=== PATIENT | female | born 1960 | race Caucasian/White ===

== ENCOUNTER 2017-12-14 10:02 | Observation (INO) | payer BC ==
[~2017-12-14] VITALS: Ht 160 cm; Wt 83.0 kg
[2017-12-14] MEDS ORDERED: NS(*) 0.9% 1000 ML BAG 1,000 ML IV ONE ×2 (10:08→12:05)
--- NOTE | 2017-12-14 10:08 | ER Report ---
History and Physical Time Seen By MD: 10:07 HPI/ROSSY CHIEF COMPLAINT: Somnolence, altered mental status HISTORY OF PRESENT ILLNESS: Patient is a 57-year-old female here status post knee replacement of the left knee on Tuesday. Patient was brought in by EMS due to a reported Phenergan overdose and altered mental status. Patient is currently taking Phenergan, Percocet for symptom management postop. Report was that the patient took more Phenergan and then usual likely causing her somnolence. She was noted to have desaturated on room air to 84% with no history of supplemental oxygen use. Patient is unsure how many pills she took and she denies suicidal or homicidal ideations or intentional self-harm. Lungs are clear to auscultation time of evaluation. Patient was tachycardic at time of evaluation in sinus rhythm, afebrile, hemodynamically stable. Denies chest pain. REVIEW OF SYSTEMS: Constitutional: No fever, no chills. Eyes: No discharge. ENT: No sore throat. Cardiovascular: No chest pain, no palpitations. Respiratory: No cough, no shortness of breath, Gastrointestinal: No abdominal pain, no vomiting. Genitourinary: No hematuria. Musculoskeletal: + left knee post op pain Skin: No rashes. Neurological: + confusion, somnolence Allergies: Coded Allergies: codeine (Verified Adverse Reaction, Intermediate, NAUSEA/VOMITING, 12/14/17) Home Meds Reported Medications Aspirin (ASPIRIN) 325 Mg Tablet, 325 MG PO BID, TAB 12/14/17 Docusate Sodium (COLACE) 100 Mg Capsule, 100 MG PO PRN, CAPSULE 12/14/17 Oxycodone Hcl/Acetaminophen (PERCOCET 5-325 MG TABLET) 1 Each Tablet, 1 EACH PO Q4-6H PRN for PAIN, TAB 12/14/17 Promethazine Hcl (PROMETHAZINE HCL) 25 Mg Tablet, 25 MG PO Q8H PRN for NAUSEA, TAB 12/14/17 Constitutional Vital Sign - Last 24 Hours 12/14/17 12/14/17 12/14/17 12/14/17 10:02 10:03 10:06 10:10 Temp 97.8 Pulse 103 104 Resp 8 B/P (MAP) 115/80 (92) 115/80 Pulse Ox 82 88 O2 Delivery Room Air Room Air O2 Flow Rate 4.0 12/14/17 12/14/17 12/14/17 12/14/17 10:32 10:48 11:00 11:02 Pulse 105 102 B/P (MAP) 111/85 (94) 115/84 (94) Pulse Ox 97 90 O2 Delivery Nasal Cannula Nasal Cannula O2 Flow Rate 4 4 12/14/17 12/14/17 12/14/17 12/14/17 11:15 11:20 11:30 11:35 Pulse 99 100 B/P (MAP) 113/81 (92) 100/79 (86) Pulse Ox 94 91 O2 Delivery Nasal Cannula Nasal Cannula O2 Flow Rate 4 4 12/14/17 12/14/17 12/14/17 12/14/17 11:45 11:50 12:00 12:05 Pulse 100 101 B/P (MAP) 99/67 (78) 108/89 (95) Pulse Ox 92 89 O2 Delivery Nasal Cannula Nasal Cannula O2 Flow Rate 4 4 12/14/17 12/14/17 12/14/17 12/14/17 12:30 12:35 12:40 13:00 Pulse 100 B/P (MAP) 105/79 (88) 100/81 (87) 122/88 (99) Pulse Ox 91 O2 Delivery Nasal Cannula O2 Flow Rate 4 12/14/17 12/14/17 12/14/17 12/14/17 13:05 13:20 13:35 13:40 Pulse 95 97 B/P (MAP) 115/81 (92) 125/87 (100) Pulse Ox 97 95 O2 Delivery Nasal Cannula Nasal Cannula O2 Flow Rate 4 12/14/17 14:00 B/P (MAP) 105/77 (86) Physical Exam General Appearance: The patient is alert, has no immediate need for airway protection and no signs of toxicity. + somnolent appearing Eyes: Pupils equal and round no pallor or injection. ENT, Mouth: Mucous membranes are moist. Respiratory: There are no retractions, lungs are clear to auscultation. Cardiovascular: + tachy and regular Gastrointestinal: Abdomen is soft and non tender, no masses, bowel sounds normal. Neurological: Somnolent, moving all extremities Skin: Warm and dry, no rashes. Musculoskeletal: Neck is supple non tender. + left knee in post surgical bandage without drainage DIFFERENTIAL DIAGNOSIS: After history and physical exam differential diagnosis was considered for medication overdose, medication interaction, infection, dehydration Medical Decision Making Data Points Result Diagram: 12/14/17 1000 12/14/17 1000 Laboratory Hematology Test 12/14/17 10:00 12/14/17 11:15 12/14/17 11:28 Red Blood Count 3.41 M/uL (4.17-5.56) Mean Corpuscular Volume 97.2 fL (80.0-96.0) Mean Corpuscular Hemoglobin 31.6 pg (26.0-33.0) Mean Corpuscular Hemoglobin Concent 32.5 g/dL (32.0-36.0) Red Cell Distribution Width 13.9 % (11.5-14.5) Mean Platelet Volume 8.2 fL (7.2-11.1) Neutrophils (%) (Auto) 76.5 % (39.4-72.5) Lymphocytes (%) (Auto) 9.7 % (17.6-49.6) Monocytes (%) (Auto) 13.7 % (4.1-12.4) Eosinophils (%) (Auto) 0.0 % (0.4-6.7) Basophils (%) (Auto) 0.1 % (0.3-1.4) Nucleated RBC Relative Count (auto) 0.0 /100WBC Neutrophils # (Auto) 16.3 K/uL (2.0-7.4) Lymphocytes # (Auto) 2.1 K/uL (1.3-3.6) Monocytes # (Auto) 2.9 K/uL (0.3-1.0) Eosinophils # (Auto) 0.0 K/uL (0.0-0.5) Basophils # (Auto) 0.0 K/uL (0.0-0.1) Nucleated RBC Absolute Count (auto) 0.01 K/uL Peripheral Blood Smear Yes Y/N Sodium Level 141 mmol/L (137-145) Potassium Level 4.5 mmol/L (3.5-5.0) Chloride Level 100 mmol/L (98-107) Carbon Dioxide Level 29 mmol/L (22-31) Blood Urea Nitrogen 19 mg/dl (7-18) Creatinine 0.80 mg/dl (0.52-1.04) Glomerular Filtration Rate Calc > 60.0 Random Glucose 135 mg/dl (75-110) Calcium Level 8.9 mg/dl (8.4-10.2) Total Bilirubin 0.3 mg/dl (0.2-1.3) Aspartate Amino Transf (AST/SGOT) 123 U/L (0-35) Alanine Aminotransferase (ALT/SGPT) 117 U/L (0-56) Alkaline Phosphatase 51 U/L (0-126) Total Protein 7.0 g/dl (6.3-8.2) Albumin 3.9 g/dl (3.5-5.0) Lipase 129 U/L (23-300) Urine Color Yellow Urine Clarity Slightly-cloudy Urine pH 5.0 pH (4.8-9.5) Urine Specific [place] 1.023 Urine Protein 30 mg/dL (NEGATIVE) Urine Glucose (UA) Negative mg/dL (NEGATIVE) Urine Ketones Negative mg/dL (NEGATIVE) Urine Blood Negative (NEGATIVE) Urine Nitrite Negative (NEGATIVE) Urine Bilirubin Negative (NEGATIVE) Urine Urobilinogen 2.0 mg/dL (0.2-1.9) Urine Leukocyte Esterase Negative (NEGATIVE) Urine RBC 2 /HPF (0-2/HPF) Urine WBC 12 /HPF (0-5/HPF) Urine Squamous Epithelial Cells Many /LPF (NONE-FEW) Urine Bacteria Negative /HPF (NONE-FEW) Urine Hyaline Casts Many /LPF (NONE-FEW) Urine Mucus Few /HPF (NONE-FEW) Lactate 3.5 mmol/L (0.7-2.1) Chemistry Test 12/14/17 10:00 12/14/17 11:15 12/14/17 11:28 White Blood Count 21.3 k/uL (4.5-11.0) Red Blood Count 3.41 M/uL (4.17-5.56) Hemoglobin 10.8 g/dL (12.0-16.0) Hematocrit 33.2 % (34.0-47.0) Mean Corpuscular Volume 97.2 fL (80.0-96.0) Mean Corpuscular Hemoglobin 31.6 pg (26.0-33.0) Mean Corpuscular Hemoglobin Concent 32.5 g/dL (32.0-36.0) Red Cell Distribution Width 13.9 % (11.5-14.5) Platelet Count 325 K/uL (150-450) Mean Platelet Volume 8.2 fL (7.2-11.1) Neutrophils (%) (Auto) 76.5 % (39.4-72.5) Lymphocytes (%) (Auto) 9.7 % (17.6-49.6) Monocytes (%) (Auto) 13.7 % (4.1-12.4) Eosinophils (%) (Auto) 0.0 % (0.4-6.7) Basophils (%) (Auto) 0.1 % (0.3-1.4) Nucleated RBC Relative Count (auto) 0.0 /100WBC Neutrophils # (Auto) 16.3 K/uL (2.0-7.4) Lymphocytes # (Auto) 2.1 K/uL (1.3-3.6) Monocytes # (Auto) 2.9 K/uL (0.3-1.0) Eosinophils # (Auto) 0.0 K/uL (0.0-0.5) Basophils # (Auto) 0.0 K/uL (0.0-0.1) Nucleated RBC Absolute Count (auto) 0.01 K/uL Peripheral Blood Smear Yes Y/N Glomerular Filtration Rate Calc > 60.0 Calcium Level 8.9 mg/dl (8.4-10.2) Total Bilirubin 0.3 mg/dl (0.2-1.3) Aspartate Amino Transf (AST/SGOT) 123 U/L (0-35) Alanine Aminotransferase (ALT/SGPT) 117 U/L (0-56) Alkaline Phosphatase 51 U/L (0-126) Total Protein 7.0 g/dl (6.3-8.2) Albumin 3.9 g/dl (3.5-5.0) Lipase 129 U/L (23-300) Urine Color Yellow Urine Clarity Slightly-cloudy Urine pH 5.0 pH (4.8-9.5) Urine Specific [place] 1.023 Urine Protein 30 mg/dL (NEGATIVE) Urine Glucose (UA) Negative mg/dL (NEGATIVE) Urine Ketones Negative mg/dL (NEGATIVE) Urine Blood Negative (NEGATIVE) Urine Nitrite Negative (NEGATIVE) Urine Bilirubin Negative (NEGATIVE) Urine Urobilinogen 2.0 mg/dL (0.2-1.9) Urine Leukocyte Esterase Negative (NEGATIVE) Urine RBC 2 /HPF (0-2/HPF) Urine WBC 12 /HPF (0-5/HPF) Urine Squamous Epithelial Cells Many /LPF (NONE-FEW) Urine Bacteria Negative /HPF (NONE-FEW) Urine Hyaline Casts Many /LPF (NONE-FEW) Urine Mucus Few /HPF (NONE-FEW) Lactate 3.5 mmol/L (0.7-2.1) Urinalysis Test 12/14/17 11:15 Urine Color Yellow Urine Clarity Slightly-cloudy Urine pH 5.0 pH (4.8-9.5) Urine Specific [place] 1.023 Urine Protein 30 mg/dL (NEGATIVE) Urine Glucose (UA) Negative mg/dL (NEGATIVE) Urine Ketones Negative mg/dL (NEGATIVE) Urine Blood Negative (NEGATIVE) Urine Nitrite Negative (NEGATIVE) Urine Bilirubin Negative (NEGATIVE) Urine Urobilinogen 2.0 mg/dL (0.2-1.9) Urine Leukocyte Esterase Negative (NEGATIVE) Urine RBC 2 /HPF (0-2/HPF) Urine WBC 12 /HPF (0-5/HPF) Urine Squamous Epithelial Cells Many /LPF (NONE-FEW) Urine Bacteria Negative /HPF (NONE-FEW) Urine Hyaline Casts Many /LPF (NONE-FEW) Urine Mucus Few /HPF (NONE-FEW) EKG/Imaging EKG Interpretation 12 lead EKG: Sinus tachycardia, rate 104, QTC 444, no ischemic changes or arrhythmias present. Rhythm: Sinus tachycardia [place]: normal QRS: normal ST segments: normal Monitor Interpretation: Sinus Tachycardia Imaging Exam type: CHEST SINGLE AP History: US of breath, knee surgery on 12/12/2017 Comparison: None. Findings: The lungs are free of acute effusions, infiltrates or edema. There is no evidence of a pneumothorax or pneumomediastinum. Cardiac silhouette is normal in size. The trachea is midline IMPRESSION: 1. No acute cardiac pulmonary process seen ED Course/Re-evaluation ED Course Patient is a 57-year-old female here with somnolence, postop from a left knee total replacement on Tuesday reportedly had taken extra Phenergan this morning which may have interacted with the patient's oxycodone. I spoke with the patient's shortly after arrival and the patient's reports that she was taking more Phenergan and oxycodone been prescribed and that she is o piate tej. Patient reports that she does have a family history of factor V Leiden deficiency and that her sibling of a blood clot in the past. Usual and the patient he came more alert after some time and receiving Narcan, she was still noted to be about 92% on 4 L of oxygen. Patient was noted to have a white count of 21,000 and a lactate of 3.5 however the patient was noted to be afebrile. She was given Toradol for pain control and was given a 2nd liter of normal saline for hydration. Due to the patient's low oxygen saturations in spite of being alert, CT PE was completed to rule out pulmonary embolism in the setting of a family history of blood clot disorder and a recent surgery on M on. CT PE is negative for pulmonary embolisms. Patient was still noted to be about 90-92% on room air. Due to patient's current consolation symptoms, apparent lab findings, decision was made to admit the patient for repeat lab evaluation and oxygen titration. Patient was admitted for further inpatient care. I discussed the patient with Dr. Bowen who agreed to admission. Decision to Disposition Date: Dec 14, 2017 Decision to Disposition Time: 15:00 Depart Departure Latest Vital Signs Vital Signs Date Time Temp Pulse Resp B/P (MAP) Pulse Ox O2 Delivery O2 Flow Rate FiO2 12/14/17 14:00 105/77 (86) 12/14/17 13:35 97 95 Nasal Cannula 12/14/17 13:05 4 12/14/17 10:06 97.8 8 Impression: Primary Impression: Lactic acidosis Additional Impressions: Lethargy Hypoxia Condition: Improved Disposition: Admitted from ER Problem Qualifiers VIRAL GARZA DO Dec 14, 2017 10:07
[2017-12-14] MEDS ORDERED: ONDANSETRON 4 MG/2 ML VIAL IVP ONE (10:10)
[2017-12-14] MEDS ORDERED: NALOXONE HCL 0.4 MG/ML VIAL IVP ONE (10:10)
[2017-12-14] MEDS ORDERED: DOCU-416 PO (10:16)
[2017-12-14] MEDS ORDERED: OXYC-865 PO (10:16)
[2017-12-14] MEDS ORDERED: PROM-110 PO (10:16)
[2017-12-14 10:22] LABS: PLATELET COUNT, AUTOMATED 325 K/uL (150-450)
--- NOTE | 2017-12-14 10:25 | EKG ---
FACILITY: [facility] - [place] PATIENT NAME: LION KAMINSKI : [id number] MR: [id number] V: [id number] EXAM DATE: ORDERING PHYSICIAN: VIRAL GARZA TECHNOLOGIST: EMILY Test Reason : ALOC Blood Pressure : / mmHG Vent. Rate : 104 BPM Atrial Rate : 104 BPM P-R Int : 150 ms QRS Dur : 078 ms QT Int : 338 ms P-R-T Axes : 055 015 026 degrees QTc Int : 444 ms Sinus tachycardia Low voltage QRS Borderline ECG No previous ECGs available Confirmed by TORI ADORNO ([id number]) on 12/14/2017 12:46:33 PM Referred By: KAYLA Confirmed By:TORI ADORNO
[2017-12-14] MEDS ORDERED: KETOROLAC 30 MG/ML VIAL IVP ONE (10:40)
--- NOTE | 2017-12-14 11:11 | RADIOLOGY IMAGING REPORT ---
FACILITY: [facility] - [place] PATIENT NAME: Marisela Desai : 1960 MR: [id number] V: [id number] EXAM DATE: ORDERING PHYSICIAN: VIRAL GARZA TECHNOLOGIST: Location: [facility] - [place] Patient: Marisela Desai : 1960 Visit/Account:[id number] Date of Sevice: 12/14/2017 Exam type: CHEST SINGLE AP History: US of breath, knee surgery on 12/12/2017 Comparison: None. Findings: The lungs are free of acute effusions, infiltrates or edema. There is no evidence of a pneumothorax or pneumomediastinum. Cardiac silhouette is normal in size. The trachea is midline IMPRESSION: 1. No acute cardiac pulmonary process seen Report Dictated By: Keiry Saleh MD at 12/14/2017 11:07 AM Report E-Signed By: Keiry Saleh MD at 12/14/2017 11:08 AM WSN:[id number]
[2017-12-14] MEDS ORDERED: NS(*) 0.9% 50 ML BAG 50 ML ONE (12:19)
[2017-12-14] MEDS ORDERED: IOPAMIDOL 76% 75 ML INFUS BTL 75 ML ONE (12:20)
[2017-12-14] MEDS ORDERED: traMADol 50 MG TAB PO ONE (12:55)
--- NOTE | 2017-12-14 13:03 | RADIOLOGY IMAGING REPORT ---
FACILITY: [facility] - [place], [place] PATIENT NAME: Marisela Desai : 1960 MR: [id number] V: [id number] EXAM DATE: ORDERING PHYSICIAN: VIRAL GARZA TECHNOLOGIST: Location: [facility] [place] Patient: Marisela Desai : 1960 Visit/Account:[id number] Date of Sevice: 12/14/2017 EXAMINATION: CTA of the chest with IV contrast HISTORY: Shortness of breath. TECHNIQUE: Pulmonary embolus protocol - Thin-slice axial imaging of the chest was performed during maximal pulmonary arterial opacification with intravenous nonionic iodinated contrast. 3D coronal sla b MIPs and 2D reconstructions in the coronal and sagittal planes were performed to aid in pulmonary e mbolus detection. Collar Sewer images have been stored on PACS. One of the following dose optimization techniques was utilized in the performance of this exam: Autom ated exposure control; adjustment of the mA and/or kV according to the patient's size; or use of an i terative reconstruction technique. Specific details can be referenced in the facility's radiology C T exam operational policy. CONTRAST: 75 mL of IV Isovue-370 COMPARISON: Chest x-ray from same date. FINDINGS: CTA CHEST: Please note that this exam is optimized for assessment of the pulmonary arteries and is not intended as a diagnostic study of the thoracic aorta, coronary arteries or venous structures. Lower neck: Negative. Angiographic Findings: Pulmonary arteries: There are no filling defects in the main, right, left, lobar, segmental or visual ized sub-segmental branches of the pulmonary arterial system. No intraluminal webs or bronchial mesfin aterals. Other vasculature: Negative. Additional non-angiographic findings: Lungs / Pleura: Negative. Mediastinum / Natasha: Negative. Heart / Pericardium: Negative. Lymph nodes: Negative. Musculoskeletal / Body wall: Multilevel degenerative disc disease in the thoracic spine with convex rightward curvature. Upper abdomen: 2.2 x 1.8 cm left adrenal nodule measuring 28 Hounsfield units. IMPRESSION: 1. No evidence of acute or chronic pulmonary embolism. 2. Otherwise no acute cardiopulmonary process. 3. Nonspecific 2.2 x 1.8 cm left adrenal nodule. This is most likely benign in the absence of known p rimary malignancy. 4. Multilevel degenerative disc disease and thoracic spine with convex rightward curvature. Report Dictated By: Gigi Dennis MD at 12/14/2017 12:51 PM Report E-Signed By: Gigi Dennis MD at 12/14/2017 1:00 PM WSN:[id number]
[2017-12-14 14:44] VITALS: BP 111/78
[2017-12-14] MEDS ORDERED: ASPI-757 PO (14:49)
[2017-12-14] MEDS ORDERED: NS(*) 0.9% 1000 ML BAG 1,000 ML IV PRN (16:15)
--- NOTE | 2017-12-14 16:42 | History & Physical ---
History of Present Illness Chief Complaint Lethargy History of Present Illness This patient presented to the emergency room with reports of increased lethargy and sleepiness. She underwent knee replacement surgery in [place] last week. She accidentally took 2 pills of phergan instead of 1 and has had increased somnolence since. In the emergency room she was treated with Narcan, but continued to be lethargic and had decreased oxygen saturation. She denies any fever or increased pain in her knee. History Problems: (1) No pertinent past medical history Home Meds Reported Medications Aspirin (ASPIRIN) 325 Mg Tablet, 325 MG PO BID, TAB 12/14/17 Docusate Sodium (COLACE) 100 Mg Capsule, 100 MG PO PRN, CAPSULE 12/14/17 Oxycodone Hcl/Acetaminophen (PERCOCET 5-325 MG TABLET) 1 Each Tablet, 1 EACH PO Q4-6H PRN for PAIN, TAB 12/14/17 Promethazine Hcl (PROMETHAZINE HCL) 25 Mg Tablet, 25 MG PO Q8H PRN for NAUSEA, TAB 12/14/17 Allergies: Coded Allergies: codeine (Verified Adverse Reaction, Intermediate, NAUSEA/VOMITING, 12/14/17) Hx Smoking: No Hx Alcohol Use: No Hx Substance Use Disorder: No Review of Systems All Systems Reviewed/Normal: Yes, Except as Noted Cardiovascular: No Chest Pain Respiratory: No Shortness of Breath Exam Vital Signs Vital Signs Date Time Temp Pulse Resp B/P (MAP) Pulse Ox O2 Delivery O2 Flow Rate FiO2 12/14/17 15:19 89 Nasal Cannula 4.0 12/14/17 14:44 98.1 88 16 111/78 (89) Neuro: No Gross deficits Eyes: PERRLA Cardiovascular: Regular Rate and Rhythm Respiratory: Clear to Auscultation Extremities: No Edema Integumentary: No Cyanosis Medical Decision Making Data Points Result Diagram: 12/14/17 1000 12/14/17 1000 Assessment and Plan Problems: (1) Lethargy Assessment & Plan: She did present with increased lethargy after taking an extra tablet of 25mg Phenergan. We will observe her overnight to be sure she is not have any further effects. (2) Hypoxia Assessment & Plan: She has had hypoxia, which is likely secondary to apnea with her increased lethargy. A CT scan of the chest was negative for pulmonary embolism. She has been placed on supplemental oxygen. (3) Lactic acidosis Assessment & Plan: This is thought to be secondary to her hypoxia since she does not have any outward symptoms of infection. We will treat her with IV fluids and repeat a level later this evening. (4) Elevated liver enzymes Assessment & Plan: Also likely secondary to hypoxia. We will repeat her levels in the morning. Venous Thromboembolism Antithrombotics Is Pt On Any Antithrombotics?: No Exam Sepsis Risk: No Definite Risk TORI ADORNO DO Dec 14, 2017 16:42
[2017-12-14 19:16] VITALS: BP 106/75
[2017-12-14] MEDS: ASPIRIN 325 MG TAB PO SCH (20:36)
[2017-12-14] MEDS: oxyCODONE HCL 5 MG CAP PO PRN (22:18)
[2017-12-14 22:36] VITALS: BP 108/82
[2017-12-15] MEDS: oxyCODONE HCL 5 MG CAP PO PRN (05:15)
[2017-12-15] MEDS: IBUPROFEN 600 MG TAB PO PRN ×2 (05:38→18:15)
[2017-12-15 05:57] LABS: PLATELET COUNT, AUTOMATED 224 K/uL (150-450)
[2017-12-15] MEDS: traMADol 50 MG TAB PO PRN ×3 (09:35→22:23)
[2017-12-15] MEDS: ASPIRIN 325 MG TAB PO SCH (10:40)
[2017-12-15] MEDS: MAGNESIUM HYDROXIDE* 30ML UDCP PO SCH (10:40)
[2017-12-15 10:41] VITALS: BP 119/82
[2017-12-15] MEDS: FAMOTIDINE 20 MG TAB PO SCH ×2 (10:41→10:47)
[2017-12-15] MEDS ORDERED: ACETA/BUTAL/CAFF 325/50/40 TAB PO ONE ×2 (11:30→21:05)
--- NOTE | 2017-12-15 11:36 | Hospitalist Progress Note ---
Subjective Progress Notes Subjective She has complaints of headache this morning. She appears to still be drowsy this morning. Patient Complains of: Cardiovascular: No: Chest Pain Respiratory: No: Shortness of Breath Physical Exam Vital Signs Date Time Temp Pulse Resp B/P (MAP) Pulse Ox O2 Delivery O2 Flow Rate FiO2 12/15/17 10:41 98.6 87 8 119/82 (94) 96 Nasal Cannula 2.0 Intake and Output 12/15/17 07:00 Intake Total 2240 ml Output Total 20 ml Balance 2220 ml Intake Oral 240 ml IV Total 2000 ml Output Urine Total 20 ml # Voids 3 General Appearance: Alert, Awake, No Acute Distress, Afebrile Neuro: No Gross deficits Cardiovascular: Regular Rate and Rhythm Respiratory: No Respiratory Distress, Clear to Auscultation GI: Soft and Non-Tender, Other (no BM since surgery) Psych: Appropriate Mood & Affect, Other (drowsy in appearance, able to speak without difficulty) Result Diagram: 12/15/17 0547 12/15/17 0547 Monitor Interpretation: Sinus Tachycardia Assessment and Plan Problems: (1) Lethargy Assessment & Plan: She did present with increased lethargy after taking an extr a tablet of 25mg Phenergan. She appears to be drowsy still this morning, but overall appears to be related to narcotics causing lethargy. We will do Urine Drug Screen. We will switch her from Oxy IR to Tramadol to see if lethargy is lessened. (2) Hypoxia Assessment & Plan: She has had hypoxia, which is likely secondary to apnea with her increased lethargy. A CT scan of the chest was negative for pulmonary embolism. She has been placed on supplemental oxygen. (3) Lactic acidosis Assessment & Plan: This is thought to be secondary to her hypoxia since she does not have any outward symptoms of infection. She was treated with IV fluids and repeat a level shows improvement at 1.2. (4) Elevated liver enzymes Assessment & Plan: Also likely secondary to hypoxia. AST improving, continue to monitor. (5) Migraine Status: Chronic Assessment & Plan: She has chronic migraines, which she takes Fioricet. Exam Sepsis Risk: No Definite Risk MO OLMOS MANAGER SPRING Dec 15, 2017 11:36
[2017-12-15] MEDS ORDERED: [UNRECOGNIZED DRUG - CODE] PO (12:05)
[2017-12-15] MEDS ORDERED: BUTA1CAP6 PO (12:05)
--- NOTE | 2017-12-15 13:35 | RADIOLOGY IMAGING REPORT ---
FACILITY: [facility] - [place] PATIENT NAME: Marisela Desai : 1960 MR: [id number] V: [id number] EXAM DATE: ORDERING PHYSICIAN: MO OLMOS TECHNOLOGIST: Location: [facility] [place] Patient: Marisela Desai : 1960 Visit/Account:[id number] Date of Sevice: 12/15/2017 HEAD W/O CONTRAST Provided history: Lethargy, postop knee surgery, headache Additional pertinent history: none TECHNIQUE: Imaging was obtained from the skull base through the vertex without intravenous contrast. Source images were reformatted in the coronal sagittal planes. One of the following dose optimization techniques was utilized in the performance of this exam: Autom ated exposure control; adjustment of the mA and/or kV according to the patient's size; or use of an i terative reconstruction technique. Specific details can be referenced in the facility's radiology CT exam operational policy. Additional imaging: none COMPARISON STUDIES: No relevant priors FINDINGS: Brain volume: Normal Acute cortical ischemia: None Chronic cortical and ganglionic ischemia: none significant Hemorrhage: None Masses / edema: None White matter: Normal Vessels: Normal Extra-axial: None significant Calvarium / scalp: Negative Skull base: negative Visualized sinuses / orbits: negative IMPRESSION: Normal CT of the brain. No evidence of mass, acute ischemia or hemorrhage. Report Dictated By: Rupert Velasquez MD at 12/15/2017 1:31 PM Report E-Signed By: Rupert Velasquez MD at 12/15/2017 1:33 PM WSN:[email or web address]
[2017-12-15 14:46] VITALS: Ht 160 cm; Wt 83.0 kg
[2017-12-15 15:59] VITALS: BP 131/75
[2017-12-15] MEDS ORDERED: NS(*) 0.9% 500 ML BAG 500 ML IV ONE (18:35)
[2017-12-15 18:50] VITALS: BP 130/84
[2017-12-15 23:23] VITALS: BP 140/82
[2017-12-16] MEDS: IBUPROFEN 600 MG TAB PO PRN (02:20)
[2017-12-16] MEDS: traMADol 50 MG TAB PO PRN (05:23)
[2017-12-16 07:46] LABS: PLATELET COUNT, AUTOMATED 246 K/uL (150-450)
[2017-12-16] MEDS ORDERED: ACETA/BUTAL/CAFF 325/50/40 TAB PO PRN (08:35)
[2017-12-16] MEDS ORDERED: APAP/HYDROCODONE 325/5 TAB PO PRN (08:35)
[2017-12-16 08:40] VITALS: BP 131/85
[2017-12-16] MEDS: MAGNESIUM HYDROXIDE* 30ML UDCP PO SCH (09:40)
[2017-12-16] MEDS: ASPIRIN 325 MG TAB PO SCH (09:40)
[2017-12-16] MEDS: PANTOPRAZOLE SOD 40 MG TABEC PO SCH (09:40)
--- NOTE | 2017-12-16 10:56 | Hospitalist Progress Note ---
Subjective Progress Notes Subjective She has complaints of increased pain to the surgical knee this morning. She still has a headache, which did not go away yesterday despite treatment. Patient Complains of: Cardiovascular: No: Chest Pain Respiratory: No: Shortness of Breath Physical Exam Vital Signs Date Time Temp Pulse Resp B/P (MAP) Pulse Ox O2 Delivery O2 Flow Rate FiO2 12/16/17 08:40 98.4 76 16 131/85 (100) 89 Nasal Cannula 1.5 Intake and Output 12/16/17 06:59 Intake Total 770 ml Balance 770 ml Intake Oral 270 ml IV Total 500 ml # Voids 5 # Bowel Movements 1 General Appearance: Alert, Awake, No Acute Distress, Afebrile Neuro: No Gross deficits Cardiovascular: Regular Rate and Rhythm Respiratory: No Respiratory Distress, Clear to Auscultation GI: Soft and Non-Tender Psych: Alert & Oriented X3, Appropriate Mood & Affect Result Diagram: 12/16/17 0735 12/16/17 0735 Monitor Interpretation: Sinus Tachycardia Assessment and Plan Problems: (1) Lethargy Assessment & Plan: She did present with increased lethargy after taking an extra tablet of 25mg Phenergan. The drowsiness appears to be improving, but her headache has exacerbated recovery. (2) Anemia Status: Acute Assessment & Plan: Her hemoglobin has continued to decrease since admission. She has no reported bleeding from body. Continue to monitor. CBC to be done in the morning. She will be started on Protonix, secondary to high use NSAIDs. (3) Hypoxia Assessment & Plan: She has had hypoxia, which is likely secondary to apnea with her increased lethargy. A CT scan of the chest was negative for pulmonary embolism. She has been placed on supplemental oxygen. (4) Lactic acidosis Assessment & Plan: This is thought to be secondary to her hypoxia since she does not have any outward symptoms of infection. She was treated with IV fluids and repeat a level shows improvement at 1.2. (5) Elevated liver enzymes Assessment & Plan: Also likely secondary to hypoxia. Improving, continue to monitor. (6) Migraine Status: Chronic Assessment & Plan: She has chronic migraines, which she takes Fioricet. Head CT performed 12/15 shows no acute abnormality. She does continue to have headache today. Patient requests to use her own medication (Fioricet) to aid in headache relief. Exam Sepsis Risk: No Definite Risk Problem Qualifiers (1) Anemia: Anemia type: unspecified type Qualified Codes: D64.9 - Anemia, unspecified MO OLMOS FISH ROE TECHNICIAN Dec 16, 2017 10:56
[2017-12-16 16:13] VITALS: BP 139/72
[2017-12-16] MEDS ORDERED: INFLUENZA VIRUS VAC 0.5ML SYR IM ONLY ONE (16:15)
[2017-12-16 19:44] VITALS: BP 150/85
[2017-12-16] MEDS: IBUPROFEN PO PRN (20:00)
[2017-12-16] MEDS: FAMOTIDINE PO PRN (20:00)
[2017-12-17 02:10] VITALS: BP 158/94
[2017-12-17] MEDS: FAMOTIDINE PO PRN (04:01)
[2017-12-17] MEDS: IBUPROFEN PO PRN (04:01)
[2017-12-17 05:54] LABS: PLATELET COUNT, AUTOMATED 315 K/uL (150-450)
[2017-12-17 07:03] VITALS: BP 152/84
[2017-12-17] MEDS: ASPIRIN 325 MG TAB PO SCH (08:41)
[2017-12-17] MEDS: MAGNESIUM HYDROXIDE* 30ML UDCP PO SCH (09:00)
[2017-12-17] MEDS: PANTOPRAZOLE SOD 40 MG TABEC PO SCH (10:03)
[2017-12-17] MEDS ORDERED: PANT40TA65 PO (10:10)
[2017-12-17] MEDS ORDERED: ACET500T68 PO (10:13)
--- NOTE | 2017-12-17 10:32 | Hospitalist Depart ---
Discharge Summary Reason for Hosp/Final Diag: (1) Lethargy Hospital Course & Plan: Most likely related to narcotic pain medications (oxycodone) and antiemetic (Phenergan). The drowsiness/lethargy resolved after stopping the offending medications. She did have some pain control issues, but seemed to be doing fairly well with acetaminophen and ibuprofen. (2) Anemia Status: Acute Hospital Course & Plan: Most likely due to surgical blood loss with her recent knee replacement. Her hemoglobin/hematocrit did stabilize during her stay and started to improve. (3) Hypoxia Hospital Course & Plan: She did have hypoxia, which is likely secondary to respiratory depression with her medications. A CT scan of the chest was negative for pulmonary embolism. She did require supplemental oxygen initially, but was able to be weaned off. She was able to maintain adequate oxygen saturations. It does not appear she will need any ongoing oxygen at home. (4) Lactic acidosis Hospital Course & Plan: This is thought to be secondary to her respiratory depression/hypoxia. She did not have any outward symptoms of infection. She was treated with IV fluids and repeat a level showed resolution. (5) Elevated liver enzymes Hospital Course & Plan: Also, likely secondary to hypoxia. Her LFTs improved throughout her stay. (6) Migraine Status: Chronic Hospital Course & Plan: She has chronic migraines - uses Fioricet. Head CT performed 12/15 shows no acute abnormality. Departure Weight (Pounds): 183 Result Diagram: 12/17/17 0535 12/17/17 0535 Item Value Date Time White Blood Count 21.3 k/uL H 12/14/17 1000 Hemoglobin 10.8 g/dL L 12/14/17 1000 Hematocrit 33.2 % L 12/14/17 1000 Platelet Count 325 K/uL 12/14/17 1000 White Blood Count 10.1 k/uL 12/16/17 0735 Hemoglobin 9.0 g/dL *L 12/16/17 0735 Hematocrit 26.9 % *L 12/16/17 0735 Platelet Count 246 K/uL 12/16/17 0735 Platelet Count 224 K/uL 12/15/17 0547 Hematocrit 28.2 % L 12/15/17 0547 Hemoglobin 9.4 g/dL L 12/15/17 0547 White Blood Count 12.1 k/uL H 12/15/17 0547 Sodium Level 141 mmol/L 12/14/17 1000 Potassium Level 4.5 mmol/L 12/14/17 1000 Chloride Level 100 mmol/L 12/14/17 1000 Carbon Dioxide Level 29 mmol/L 12/14/17 1000 Blood Urea Nitrogen 19 mg/dl H 12/14/17 1000 Creatinine 0.80 mg/dl 12/14/17 1000 Glomerular Filtration Rate Calc > 60.0 12/14/17 1000 Random Glucose 135 mg/dl H 12/14/17 1000 Calcium Level 8.9 mg/dl 12/14/17 1000 Total Bilirubin 0.3 mg/dl 12/14/17 1000 Aspartate Amino Transf (AST/SGOT) 123 U/L H 12/14/17 1000 Alanine Aminotransferase (ALT/SGPT) 117 U/L H 12/14/17 1000 Alkaline Phosphatase 51 U/L 12/14/17 1000 Total Protein 7.0 g/dl 12/14/17 1000 Albumin 3.9 g/dl 12/14/17 1000 Lipase 129 U/L 12/14/17 1000 Lactate 3.5 mmol/L H 12/14/17 1128 Lactate 1.2 mmol/L 12/15/17 0547 C-Reactive Protein 3.2 mg/dl H 12/14/17 1856 Urine Opiates Screen Positive 12/15/17 0000 Urine Barbiturates Screen Negative 12/15/17 0000 Ur Tricyclic Antidepressants Screen Negative 12/15/17 0000 Urine Phencyclidine Screen Negative 12/15/17 0000 Urine Amphetamines Screen Negative 12/15/17 0000 Urine Benzodiazepines Screen Positive 12/15/17 0000 Urine Cocaine Screen Negative 12/15/17 0000 Urine Cannabinoids Screen Negative 12/15/17 0000 Urine Mucus Few /HPF 12/14/17 1115 Urine Hyaline Casts Many /LPF H 12/14/17 1115 Urine Bacteria Negative /HPF 12/14/17 1115 Urine Squamous Epithelial Cells Many /LPF H 12/14/17 1115 Urine WBC 12 /HPF 12/14/17 1115 Urine RBC 2 /HPF 12/14/17 1115 Urine Leukocyte Esterase Negative 12/14/17 1115 Urine Urobilinogen 2.0 mg/dL 12/14/17 1115 Urine Bilirubin Negative 12/14/17 1115 Urine Nitrite Negative 12/14/17 1115 Urine Blood Negative 12/14/17 1115 Urine Ketones Negative mg/dL 12/14/17 1115 Urine Glucose (UA) Negative mg/dL 12/14/17 1115 Urine Protein 30 mg/dL 12/14/17 1115 Urine Specific [place] 1.023 12/14/17 1115 Urine pH 5.0 pH 12/14/17 1115 Urine Clarity Slightly-cloudy 12/14/17 1115 Urine Color Yellow 12/14/17 1115 Imaging PATIENT NAME: Lion Kaminski : 1960 MR: [id number] V: [id number] EXAM DATE: ORDERING PHYSICIAN: MO OLMOS TECHNOLOGIST: Location: [facility] Patient: Lion Kaminski : 1960 Visit/Account:[id number] Date of Sevice: 12/15/2017 HEAD W/O CONTRAST Provided history: Lethargy, postop knee surgery, headache Additional pertinent history: none TECHNIQUE: Imaging was obtained from the skull base through the vertex without intravenous contrast. Source images were reformatted in the coronal sagittal planes. One of the following dose optimization techniques was utilized in the perf ormance of this exam: Automated exposure control; adjustment of the mA and/or kV according to the patient's size; or use of an iterative reconstruction technique. Specific details can be referenced in the facility's radiology CT exam operational policy. Additional imaging: none COMPARISON STUDIES: No relevant priors FINDINGS: Brain volume: Normal Acute cortical ischemia: None Chronic cortical and ganglionic ischemia: none significant Hemorrhage: None Masses / edema: None White matter: Normal Vessels: Normal Extra-axial: None significant Calvarium / scalp: Negative Skull base: negative Visualized sinuses / orbits: negative IMPRESSION: Normal CT of the brain. No evidence of mass, acute ischemia or hemorrhage. Report Dictated By: Rupert Velasquez MD at 12/15/2017 1:31 PM Report E-Signed By: Rupert Velasquez MD at 12/15/2017 1:33 PM WSN:[id number] PATIENT NAME: Lion Kaminski : 1960 MR: [id number] V: [id number] EXAM DATE: ORDERING PHYSICIAN: VIRAL GARZA TECHNOLOGIST: Location: [facility] Patient: Lion Kaminski : 1960 Visit/Account:[id number] Date of Sevice: 12/14/2017 EXAMINATION: CTA of the chest with IV contrast HISTORY: Shortness of breath. TECHNIQUE: Pulmonary embolus protocol - Thin-slice axial imaging of the chest was performed during maximal pulmonary arterial opacification with intravenous nonionic iodinated contrast. 3D coronal slab MIPs and 2D reconstructions in the coronal and sagittal planes were performed to aid in pulmonary embolus detection. Director Music images have been stored on PACS. One of the following dose optimization techniques was utilized in the performance of this exam: Automated exposure control; adjustment of the mA and/or kV according to the patient's size; or use of an iterative recons truction technique. Specific details can be referenced in the facility's radiology CT exam operational policy. CONTRAST: 75 mL of IV [id number] COMPARISON: Chest x-ray from same date. FINDINGS: CTA CHEST: Please note that this exam is optimized for assessment of the pulmonary arteries and is not intended as a diagnostic study of the thoracic aorta, coronary arteries or venous structures. Lower neck: Negative. Angiographic Findings: Pulmonary arteries: There are no filling defects in the main, right, left, lobar, segmental or visualized sub-segmental branches of the pulmonary arterial system. No intraluminal webs or bronchial collaterals. Other vasculature: Negative. Additional non-angiographic findings: Lungs / Pleura: Negative. Mediastinum / Natasha: Negative. Heart / Pericardium: Negative. Lymph nodes: Negative. Musculoskeletal / Body wall: Multilevel degenerative disc disease in the thoracic spine with convex rightward curvature. Upper abdomen: 2.2 x 1.8 cm left adrenal nodule measuring 28 Hounsfield units. IMPRESSION: 1. No evidence of acute or chronic pulmonary embolism. 2. Otherwise no acute cardiopulmonary process. 3. Nonspecific 2.2 x 1.8 cm left adrenal nodule. This is most likely benign in the absence of known primary malignancy. 4. Multilevel degenerative disc disease and thoracic spine with convex rightward curvature. Report Dictated By: Gigi Dennis MD at 12/14/2017 12:51 PM Report E-Signed By: Gigi Dennis MD at 12/14/2017 1:00 PM WSN:[id number] PATIENT NAME: Lion Kaminski : 1960 MR: [id number] V: [id number] EXAM DATE: ORDERING PHYSICIAN: VIRAL GARZA TECHNOLOGIST: Location: [facility] Patient: Lion Kaminski : 1960 Visit/Account:[id number] Date of Sevice: 12/14/2017 Exam type: CHEST SINGLE AP History: US of breath, knee surgery on 12/12/2017 Comparison: None. Findings: The lungs are free of acute effusions, infiltrates or edema. There is no evidence of a pneumothorax or pneumomediastinum. Cardiac silhouette is normal in size. The trachea is midline IMPRESSION: 1. No acute cardiac pulmonary process seen Report Dictated By: Keiry Saleh MD at 12/14/2017 11:07 AM Report E-Signed By: Keiry Saleh MD at 12/14/2017 11:08 AM WSN:[id number] PATIENT NAME: LION KAMINSKI : [id number] MR: [id number] V: [id number] EXAM DATE: ORDERING PHYSICIAN: VIRAL GARZA TECHNOLOGIST: Test Reason : ALOC Blood Pressure : / mmHG Vent. Rate : 104 BPM Atrial Rate : 104 BPM P-R Int : 150 ms QRS Dur : 078 ms QT Int : 338 ms P-R-T Axes : 055 015 026 degrees QTc Int : 444 ms Sinus tachycardia Low voltage QRS Borderline ECG No previous ECGs available Confirmed by TORI ADORNO ([id number]) on 12/14/2017 12:46:33 PM Referred By: KAYLA Confirmed By:TORI ADORNO Condition: Improved Discharge: Home PT/OT Follow Up For: PT For Surgical Rehab Follow-Up Labs: Other (CBC, CMP in 1-2 weeks.) Time Spent: > 30 min Discharge Instructions Home Meds Active Scripts Acetaminophen (TYLENOL EXTRA STRENGTH) 500 Mg Tablet, 500-1000 MG PO Q8H PRN for PAIN for 10 Days, #60 TAB Prov:ALPA SHANKS MD 12/17/17 Pantoprazole Sodium (PANTOPRAZOLE SODIUM) 40 Mg Tablet.dr, 40 MG PO QDAY for 30 Days, #30 TAB 0 Refills Prov:ALPA SHANKS MD 12/17/17 Reported Medications Ibuprofen/Famotidine (DUEXIS 800-26.6 MG TABLET) 1 Each Tablet, 1 TAB PO TID PRN for Arthritis 12/15/17 Butalb/Acetaminophen/Caffeine (FIORICET 50-300-40) 1 Each Capsule, 1-2 EACH PO Q4H PRN for HEADACHE, CAPSULE 12/15/17 Aspirin (ASPIRIN) 325 Mg Tablet, 325 MG PO BID, TAB 12/14/17 Docusate Sodium (COLACE) 100 Mg Capsule, 100 MG PO PRN, CAPSULE 12/14/17 Discontinued Reported Medications Oxycodone Hcl/Acetaminophen (PERCOCET 5-325 MG TABLET) 1 Each Tablet, 1 EACH PO Q4-6H PRN for PAIN, TAB 12/14/17 Promethazine Hcl (PROMETHAZINE HCL) 25 Mg Tablet, 25 MG PO Q8H PRN for NAUSEA, TAB 12/14/17 Diet: Regular Activity: As Tolerated (as outlined by physical therapy) Special Instructions: Follow up with Dr. Briggs as planned. Continue physical therapy. If need to take a Fioricet for migraine, must substitute it in for a dose of Tylenol (acetaminophen) - cannot take them together as it is too much acetaminophen. Copies to: NAT BRIGGS MD ; Venous Thromboembolism Antithrombotics Is Pt On Any Antithrombotics?: No Problem Qualifiers (1) Anemia: Anemia type: unspecified type Qualified Codes: D64.9 - Anemia, unspecified ALPA SHANKS MD Dec 17, 2017 10:32
== END 2017-12-17 10:14 | disposition home or self-care (01) ==
LOC: ER 10:08 → INTOOBSV 14:17 → MED 14:17
PROVIDERS: ADMIT Family Medicine; ATTEND Family Medicine
DX: T42.6X1A Poisoning by other antiepileptic and sedative-hypnotic drugs, accidental (unintentional), initial encounter (principal); E87.2 Acidosis; D64.9 Anemia, unspecified; R09.02 Hypoxemia; R53.83 Other fatigue; G43.909 Migraine, unspecified, not intractable, without status migrainosus
CPT/HCPCS: 36415; 70450; 71045; 71275; 80305; 81001; 83605; 83690; 85025; 86140; 93005; 97110; 97116; 97161; 97530; A4353; G0378; J1885; J2310; J2405; J7030; J7040; J7050; Q9967; 82040; 82247; 82310; 82374; 82435; 82565; 82947; 84075; 84132; 84155; 84295; 84450; 84460; 84520; 96361; 96374; 96375; 99284

== ENCOUNTER → 2017-12-14 | Outpatient (CLI) | payer BC ==
[~2017-12-14] MED LIST: ACET500T68 PO; ASPI-757 PO; BUTA1CAP6 PO; DOCU-416 PO; OXYC-865 PO; PANT40TA65 PO; PROM-110 PO; [UNRECOGNIZED DRUG - CODE] PO
[2017-12-15 14:46] VITALS: BMI 32.4
== END ==
LOC: AMB 09:40
PROVIDERS: ATTEND Nurse Practitioner
DX: R11.2 Nausea with vomiting, unspecified (principal); R06.02 Shortness of breath; T42.6X1A Poisoning by other antiepileptic and sedative-hypnotic drugs, accidental (unintentional), initial encounter; T40.2X1A Poisoning by other opioids, accidental (unintentional), initial encounter; Y92.019 Unspecified place in single-family (private) house as the place of occurrence of the external cause; Z96.659 Presence of unspecified artificial knee joint
CPT/HCPCS: A0425; A0429